=== PATIENT | female | born 2000 | race Two or more races ===

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

== ENCOUNTER 2021-06-10 00:34 | Emergency (ER) | payer OTHER ==
[~2021-06-10] VITALS: Ht 167.6 cm; Wt 56.7 kg
[2021-06-10 01:09] VITALS: BP 127/72
== END 2021-06-10 01:52 | disposition home or self-care (01) ==
LOC: ER 00:37
DX: H61.22 Impacted cerumen, left ear (principal); F17.200 Nicotine dependence, unspecified, uncomplicated